=== PATIENT | female | born 1970 | race Caucasian/White ===

== ENCOUNTER 2016-02-19 16:57 | Emergency (ER) | payer BC, OTHER ==
[~2016-02-19] VITALS: Ht 154.9 cm; Wt 77.4 kg
[~2016-02-19 16:57] MED LIST: FLUO40CA8 PO
[2016-02-19 17:00] VITALS: TEMP 37; Ht 154.9 cm; Wt 77.4 kg
[2016-02-19] MEDS ORDERED: VENL150C PO (17:29)
[2016-02-19 17:44] LABS: URINE APPEARANCE CLEAR (CLEAR); URINE BILIRUBIN NEG (NEG); URINE COLOR YELLOW; URINE NITRITE NEG (NEG); URINE PH 6.5 (4.5-7.5); URINE SPECIFIC GRAVITY 1.008 (1.000-1.030); UROBILINOGEN NEG (NEG)
[2016-02-19 17:45] LABS: MANUAL MICROSCOPIC REQUIRED? NO; REVIEW REQ? NO
--- NOTE | 2016-02-19 18:11 | EMERGENCY ROOM VISIT NOTE ---
History Report prepared by Valeri: Addie Lucero Under the Supervision of: Dr. Enrique Zhou D.O. First contact with patient: 17:03 Chief Complaint: OTHER COMPLAINT Stated Complaint: PROLAPSED BLADDER History of Present Illness The patient is a 45 year old female who presents to the Emergency Room with complaints of a constant prolapsed bladder beginning today. The patient states that she has never experienced this before. She notes that she is not able to pee and it looks like "a baby's head is ". She is experiencing pressure and abdominal pain as she can't go pee. She denies any nausea, vomiting, fever, and chills. Source of History: patient Onset: today Position: other (bladder) Quality: other ("") Timing: constant Associated Symptoms: + abdominal pain, No chills, No fevers, No nausea, No vomiting Note: She is experiencing pressure. Review of Systems See HPI for pertinent positives & negatives. A total of 10 systems reviewed and were otherwise negative. Past Medical & Surgical Medical Problems: (1) Anxiety (2) Depression (3) Ovarian cyst (4) Restless leg syndrome Surgical Problems: (1) H/O: hysterectomy (2) Hx of cholecystectomy Family History Diabetes mellitus Social History Smoking Status: Current Every Day Smoker Alcohol Use: none Drug Use: none Marital Status: Housing Status: lives with family Occupation Status: employed Current/Historical Medications Scheduled Venlafaxine Hcl (Effexor Xr), 1 CAP PO DAILY Allergies Coded Allergies: No Known Allergies (Verified , 02/19/16) Physical Exam Vital Signs Date Time Temp Pulse Resp B/P Pulse Ox O2 Delivery O2 Flow Rate FiO2 02/19/16 18:24 81 17 120/71 97 02/19/16 17:00 37.0 95 17 154/92 97 Room Air Physical Exam GENERAL: Patient is awake, alert, and in no acute distress. Patient is very anxious and uncomfortable appearing. EYES: The conjunctivae are clear. The pupils are round and reactive. EARS, NOSE, MOUTH AND THROAT: The nose is without any evidence of any deformity. Mucous membranes are moist tongue is midline NECK: The neck is nontender and supple. RESPIRATORY: Normal respiratory effort is noted there is no evidence of wheezing rhonchi or rales CARDIOVASCULAR: Regular rate and rhythm noted there no murmurs rubs or gallops normal S1 normal S2 GASTROINTESTINAL: The abdomen is soft. Bowel sounds are present in all quadrants. Abdomen is nontender : External genitalia were normal in appearance. With Valsalva there was a small cystocele noted. MUSCULOSKELETAL/EXTREMITIES: There is no evidence of gross deformity full range of motion is noted in the hips and shoulders SKIN: There is no obvious evidence of any rash. There are no petechiae, pallor or cyanosis noted. NEUROLOGIC: Patient is awake alert and oriented x3 Medical Decision & Procedures Laboratory Results Test 02/19/16 17:20 Urine Color YELLOW Urine Appearance CLEAR (CLEAR) Urine pH 6.5 (4.5-7.5) Urine Specific Rainbow 1.008 (1.000-1.030) Urine Protein NEG (NEG) Urine Glucose (UA) NEG (NEG) Urine Ketones NEG (NEG) Urine Occult Blood 1+ (NEG) Urine Nitrite NEG (NEG) Urine Bilirubin NEG (NEG) Urine Urobilinogen NEG (NEG) Urine Leukocyte Esterase NEG (NEG) Urine WBC (Auto) 0 /hpf (0-5) Urine RBC (Auto) 5-10 /hpf (0-4) Urine Hyaline Casts (Auto) 0 /lpf (0-5) Urine Epithelial Cells (Auto) 5-10 /lpf (0-5) Urine Bacteria (Auto) NEG (NEG) Laboratory results per my review. ED Course 170: The patient was evaluated in room C10. A complete history and physical examination were performed. 172: I discussed the patient's case with Dr. Tavares. He will see her on Sunday. 174: Upon reevaluation, the patient is hemodynamically stable. I discussed the results and treatment plan with the patient. She verbalized agreement of the treatment plan. The patient was discharged home. Medical Decision Nursing notes reviewed. Differential diagnosis this patient could include prolapsed uterus cystocele rectocele vaginal mass infection abscess another differential diagnoses were considered. The patient is a 45-year-old female who presented to the emergency department for an evaluation of urinary retention and a bulge at her introitus. The patient 's physical exam appeared to be consistent with a cystocele. She is had some intermittent problems with this over the last few weeks. This appears to be so severe that patient is experiencing urinary retention. A Sorto catheter was placed and this resolved the patient's urinary retention. I discussed her case with the on-call [facility] OFFICE MACHINE SERVICER physician. They've agreed to see the patient in the office this upcoming week to discuss possible surgical management of this cystocele. I discussed this plan with the patient and she was agreeable. She was encouraged to continue all medications as prescribed and return to the emergency Department immediately if symptoms change worsen or if the need arises. Consults Time Called: 1724 Consulting Physician: Dr. Tavares Returned Call: 1728 I discussed the patient's case with Dr. Tavares. He will see her on Sunday. Impression Primary Impression: Cystocele Additional Impression: Urinary retention Scribe Attestation The scribe's documentation has been prepared under my direction and personally reviewed by me in its entirety. I confirm that the note above accurately reflects all work, treatment, procedures, and medical decision making performed by me. Departure Information Dispostion Home / Self-Care Referrals Ayesha Acosta M.D. (PCP) Forms HOME CARE DOCUMENTATION FORM, IMPORTANT VISIT INFORMATION, WORK / SCHOOL INSTRUCTIONS Patient Instructions My [facility] Additional Instructions Continue to use the Sorto catheter. Call your OFFICE MACHINE SERVICER physician on Sunday morning to schedule a follow-up appointment. Problem Qualifiers
[2016-02-19 18:24] VITALS: BP 120/71; PULSE 81; O2SAT 97
[2016-05-04] MEDS ORDERED: CHN/1 PO (11:08)
[2016-05-04] MEDS ORDERED: ATOR10TA88 PO (11:13)
== END 2016-02-19 18:25 | disposition home or self-care (01) ==
LOC: C.EDB 16:58 → C.EDC 18:25
DX: N81.10 Cystocele, unspecified (principal); R33.9 Retention of urine, unspecified; F32.9 Major depressive disorder, single episode, unspecified; F41.9 Anxiety disorder, unspecified; G25.81 Restless legs syndrome; F17.200 Nicotine dependence, unspecified, uncomplicated; N83.209 Unspecified ovarian cyst, unspecified side; Z83.3 Family history of diabetes mellitus

== ENCOUNTER 2016-04-16 23:49 | Emergency (ER) | payer BC, OTHER ==
[~2016-04-16] VITALS: Ht 157.5 cm; Wt 80.2 kg
[~2016-04-16 23:49] MED LIST changes: -FLUO40CA8 PO; +VENL150C PO
[2016-04-16 23:59] VITALS: TEMP 36.9; Ht 157.5 cm; Wt 80.2 kg
--- NOTE | 2016-04-17 00:15 | EMERGENCY ROOM VISIT NOTE ---
History Report prepared by Valeri: Raeann Castillo Under the Supervision of: Dr. Kate Calderon M.D. 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 The patient states that she has ongoing issues with urinary retention. Patient states she is scheduled to have surgery with Dr. Guajardo of urology for a sling and cystocele repair. The patient states sometimes she needs to use a pessary vaginally in order to urinate. The patient denies any recent fevers or burning with urination. A Sorto catheter had been placed prior to my evaluation. The patient's symptoms had improved significantly. The patient had similar issues last month and was discharged with a Sorto catheter for several days. Source of History: patient Onset: earlier tongiht SCRIPT SUPERVISOR Position: other (urinary) Timing: worsening Note: Patient denies any urinary urgency or frequency. Review of Systems See HPI for pertinent positives & negatives. A total of 6 systems reviewed and were otherwise negative. Past Medical & Surgical Medical Problems: (1) Anxiety (2) Depression (3) Ovarian cyst (4) Restless leg syndrome Surgical Problems: (1) H/O: hysterectomy (2) Hx of cholecystectomy Family History Diabetes mellitus Social History Smoking Status: Former Smoker Alcohol Use: none Drug Use: none Marital Status: Housing Status: lives with family Occupation Status: employed Current/Historical Medications Scheduled Venlafaxine Hcl (Effexor Xr), 1 CAP PO DAILY Allergies Coded Allergies: No Known Allergies (Verified , 04/17/16) Physical Exam Vital Signs Date Time Temp Pulse Resp B/P Pulse Ox O2 Delivery O2 Flow Rate FiO2 04/17/16 00:58 72 18 116/54 97 04/16/16 23:59 36.9 101 18 144/78 91 Room Air Physical Exam Vital signs reviewed. General: Well-appearing female, in no significant distress. HEENT: No scleral icterus, PERRLA, neck supple. Atraumatic. Cardiovascular: Regular rate and rhythm, no extra sounds. Pulmonary: Clear to auscultation bilaterally, normal work of breathing. Abdomen: Soft, nontender, nondistended, positive bowel sounds. : Sorto catheter in place Musculoskeletal: Atraumatic, no peripheral edema. Neurologic: Patient awake alert and oriented x 3, full strength in all 4 extremities. Skin: Warm, dry, no rash Medical Decision & Procedures Laboratory Results Test 04/17/16 00:45 Urine Color YELLOW Urine Appearance CLEAR (CLEAR) Urine pH 6.5 (4.5-7.5) Urine Specific Gideon 1.002 (1.000-1.030) Urine Protein NEG (NEG) Urine Glucose (UA) NEG (NEG) Urine Ketones NEG (NEG) Urine Occult Blood NEG (NEG) Urine Nitrite NEG (NEG) Urine Bilirubin NEG (NEG) Urine Urobilinogen NEG (NEG) Urine Leukocyte Esterase NEG (NEG) Laboratory results per my review. ED Course 0025: Past medical records reviewed. The patient was evaluated in room A2. A complete history and physical examination was performed. I discussed the treatment plan with the patient and she agreed to the treatment plan. The patient was discharged home. Medical Decision The patient is a 45 year old female who presents to the ED with complaints of urinary retention. Differentials include but are not limited to mechanical obstruction, UTI, medication effect, and dehydration. This patient was evaluated and appeared to be in no significant distress. Patient had significant improvement of her symptoms with the Sorto catheter placement. The patient will be discharged with the Sorto catheter this evening. She was instructed on catheter removal to be done in 24 hours. Patient will follow-up with her urologist later this week for reevaluation and to discuss the surgical date. Patient will return to the ER for worsening of symptoms or any medical concerns. Impression Primary Impression: Urinary retention Scribe Attestation The scribe's documentation has been prepared under my direction and personally reviewed by me in its entirety. I confirm that the note above accurately reflects all work, treatment, procedures, and medical decision making performed by me. Departure Information Dispostion Home / Self-Care Referrals Ayesha Acosta M.D. (PCP) Forms HOME CARE DOCUMENTATION FORM, IMPORTANT VISIT INFORMATION, WORK / SCHOOL INSTRUCTIONS Patient Instructions My [facility] Additional Instructions Diagnosis: Urinary retention Leave Sorto catheter in place for 24 hours. Remove approximately all of the fluid (10-15 ml) from the Sorto catheter balloon and remove the catheter tomorrow. Contact urology to let them know the urine the emergency department. Continue your conservative measures, such as pessary use, to encourage urine output. Return to the emergency department for worsening of symptoms or any medical concerns.
[2016-04-17 00:54] LABS: URINE APPEARANCE CLEAR (CLEAR); URINE BILIRUBIN NEG (NEG); URINE COLOR YELLOW; URINE NITRITE NEG (NEG); URINE PH 6.5 (4.5-7.5); URINE SPECIFIC GRAVITY 1.002 (1.000-1.030); UROBILINOGEN NEG (NEG); ZZURINE CULT IF INDIC CATH NO
[2016-04-17 00:58] VITALS: BP 116/54; PULSE 72; O2SAT 97
[2016-04-17 01:08] LABS: MANUAL MICROSCOPIC REQUIRED? NO; REVIEW REQ? NO
[2016-05-04] MEDS ORDERED: CHN/1 PO (11:08)
[2016-05-04] MEDS ORDERED: ATOR10TA88 PO (11:13)
== END 2016-04-17 00:55 | disposition home or self-care (01) ==
LOC: C.EDB 23:50 → C.EDA 04-17 00:55
DX: R33.9 Retention of urine, unspecified (principal); F41.9 Anxiety disorder, unspecified; N83.209 Unspecified ovarian cyst, unspecified side; F32.9 Major depressive disorder, single episode, unspecified; G25.81 Restless legs syndrome; Z87.891 Personal history of nicotine dependence; Z90.710 Acquired absence of both cervix and uterus; Z90.49 Acquired absence of other specified parts of digestive tract; Z79.899 Other long term (current) drug therapy; Z83.3 Family history of diabetes mellitus

== ENCOUNTER 2016-05-18 08:06 | Day surgery (SDC) | payer BC, OTHER ==
[2016-05-04 11:09] VITALS: BMI 33.0
--- NOTE | 2016-05-04 11:39 | PAT Medication Instructions ---
Service Date May 04, 2016. Current Home Medication List Atorvastatin (Lipitor), 10 MG PO QAM Varenicline (Chantix), 1 TAB PO BID Venlafaxine Hcl (Effexor Xr), 1 CAP PO QAM Medication Instructions For Your Scheduled Surgery - Hold the following medications the morning of surgery: Varenicline (Chantix), 1 TAB PO BID (can take later after surgery) - Take the following medications the morning of surgery with a sip of water: Venlafaxine Hcl (Effexor Xr), 1 CAP PO QAM Atorvastatin (Lipitor), 10 MG PO QAM - Take the following medications as scheduled the night before surgery: Varenicline (Chantix), 1 TAB PO BID If you have any questions please call us at [phone] or [phone] ( Rosemarie) or [phone]
[2016-05-04 12:13] LABS: BASO % 0.3 %; BASO ABS # 0.02 K/uL (0-0.2); COMPLETE YES; EOS % 2.1 %; HEMATOCRIT 40.8 % (37-47); IG% 0.2 %; LYMPH % 37.6 %; MEAN CELL VOLUME 90.7 fL (80-100); MEAN CORPUSCULAR HGB CONC 35.3 g/dl (32-36); MEAN PLATELET VOLUME 10.2 fL (7.4-10.4); NEUT % 52.8 %; PLATELET COUNT 229 K/uL (130-400); WHITE BLOOD COUNT 6.11 K/uL (4.8-10.8)
--- NOTE | 2016-05-04 12:20 | DIAGNOSTIC IMAGING REPORT ---
CHEST 2 VIEWS ROUTINE CLINICAL HISTORY: PAT preoperative evaluation COMPARISON STUDY: 04/23/2013 FINDINGS: The bones soft tissues and hemidiaphragms are normal. The cardiomediastinal silhouette is normal. The lungs are clear. The pulmonary vasculature is normal. IMPRESSION: Negative chest. Electronically signed by: Jaya Galeana M.D. 05/04/2016 12:19 PM Dictated Date/Time: 05/04/2016 12:19 PM
[2016-05-04 12:32] LABS: URINE APPEARANCE CLEAR (CLEAR); URINE BILIRUBIN NEG (NEG); URINE COLOR YELLOW; URINE NITRITE NEG (NEG); URINE PH 5.5 (4.5-7.5); URINE SPECIFIC GRAVITY 1.019 (1.000-1.030); UROBILINOGEN NEG (NEG)
[2016-05-04 12:40] LABS: MANUAL MICROSCOPIC REQUIRED? NO; REVIEW REQ? NO
[2016-05-04 12:44] LABS: BUN/CREATININE RATIO 22.8 (10-20); CREATININE 0.67 mg/dl (0.60-1.20); POTASSIUM 3.8 mmol/L (3.5-5.1)
[~2016-05-18] VITALS: Ht 154.9 cm; Wt 78.6 kg
[~2016-05-18 08:06] MED LIST changes: +ATOR10TA82 PO; +CHN/1 PO; +CIPROFLOXACIN / D5W 400 MG IV SCH; +DEXAMETHASONE SOD INJ 4 MG/ML VIAL ONE; +FENTANYL CITRATE INJ 50 MCG/1 ML 2 ML VIAL ONE; +LACTATED RINGER'S 1000ML IV SCH; +LIDOCAINE HCL 2% 2 ML VIAL (20MG/ML) ONE; +MIDAZOLAM HCL 1 MG/ML 2ML VIAL ONE; +ONDANSETRON INJ 2 MG/ML 2 ML VIAL ONE; +PROPOFOL IV EMULSION 10 MG/ML 20 ML VIAL IV ONE; +SCOPOLAMINE 1.5 MG TDSY TD SCH
[2016-05-18 08:26] VITALS: BP 117/62; PULSE 73; TEMP 36.7; O2SAT 97; Ht 154.9 cm; Wt 78.6 kg
[2016-05-18] MEDS ORDERED: PROMETHAZINE HCL INJ 6.25 MG in SODIUM CHLORIDE 0.9% 50ML 50 ML IV PRN ×2 (10:00→11:15)
[2016-05-18] MEDS ORDERED: ONDANSETRON INJ 2 MG/ML 2 ML VIAL IV PRN ×2 (10:00→11:15)
[2016-05-18] MEDS ORDERED: ATROPINE SULFATE 0.1 MG/ML 5ML SYR IV PRN ×2 (10:00→11:15)
[2016-05-18] MEDS ORDERED: EpHEDrine SULFATE INJ 50 MG/ML AMP IV PRN ×2 (10:00→11:15)
[2016-05-18] MEDS ORDERED: FENTANYL CITRATE INJ 50 MCG/1 ML 2 ML VIAL IV PRN ×2 (10:00→11:15)
--- NOTE | 2016-05-18 10:43 | History & Physical Bridge Note ---
H&P Re-Evaluation Bridge Note: I have examined the patient, reviewed the History & Physical and in the interval since the performance of the History & Physical I have noted the following changes of clinical significance: No changes noted
[2016-05-18] MEDS ORDERED: CLINDAMYCIN PHOS 2% VAG CR 40 GM TUBE ONE (10:47)
[2016-05-18] MEDS ORDERED: BUPIVACAINE/EPINEPHRINE 0.5% MPF 1:200,000 30 ML VIAL ONE (10:49)
[2016-05-18] MEDS ORDERED: DiphenhydrAMINE HCL 50 MG/ML VIAL ONE (11:16)
[2016-05-18] MEDS ORDERED: EpHEDrine SULFATE 50MG/5ML SYR ONE (11:35)
[2016-05-18] MEDS ORDERED: FENTANYL CITRATE INJ 50 MCG/1 ML 2 ML VIAL ONE (12:18)
[2016-05-18] MEDS ORDERED: PHENYLEPHRINE HCL INJ 10 MG/ML VIAL ONE (12:23)
--- NOTE | 2016-05-18 12:53 | [facility] Post Operative Brief Note ---
Immediate Operative Summary Operative Date May 18, 2016. Pre-Operative Diagnosis Cystocele and Occult Urinary Incontinence Post-Operative Diagnosis Cystocele and Occult Urinary Incontinence Procedure(s) Performed Midurethral Sling; Cystoscopy; Cystocele Repair with Shamika Plication Surgeon Dr. Selvin Guajardo Grade Checker Surgeon(s) Yaneth Eduardo-GET Estimated Blood Loss 40 cc Findings No bladder injury on cysto after each portion of case, tension free position of sling Specimens A:Cystocele sac Drains NA Anesthesia GALMA + local Complication(s) None Disposition Recovery Room / PACU
[2016-05-18] MEDS ORDERED: OXYC7.5T65 PO (12:56)
[2016-05-18] MEDS ORDERED: DOCU-94 PO (12:56)
[2016-05-18] MEDS ORDERED: SULF800T23 PO (12:56)
--- NOTE | 2016-05-18 12:58 | Discharge Instructions ---
Discharge Instructions Date of Service May 18, 2016. Admission Reason for Admission: Cystocele Discharge Discharge Diagnosis / Problem: Cystocele, stress urinary incontinence Discharge Goals Goal(s): Decrease discomfort, Improve function, Therapeutic intervention Activity Recommendations Activity Limitations: as noted below Lifting Limitations: no more than 10 pounds (x 6 weeks) Exercise/Sports Limitations: until after follow-up appointment (No heavy exercise x 6 weeks) May Resume Sexual Activity: after follow-up appointment (when cleared by Dr. Guajardo) Shower/Bathe: tomorrow (24-48hrs) Driving or Machine Use: resume 3 days after discharge . Instructions / Follow-Up Instructions / Follow-Up 1. You have been prescribed the antibiotic Bactrim DS. Finish all as directed. Discharge Diet Recommended Diet: Regular Diet Procedures Procedures Performed: Midurethral Sling; Cystoscopy; Cystocele Repair with Shamika Plication Pending Studies Studies pending at discharge: no Medical Emergencies . Who to Call and When: Medical Emergencies: If at any time you feel your situation is an emergency, please call 911 immediately. . Non-Emergent Contact Non-Emergency issues call your: Urologist Call Non-Emergent contact if: temperature is above 101.5, your pain is not controlled, your pain is worsening, your pain is unusual for you, your pain is concerning you, you have any medication questions . . "Provider Documentation" section prepared by Yaneth Eduardo. VTE Core Measure Inpt VTE Proph given/why not?: SCD's [place] Drug Monitoring Program Search Results: patient reviewed within database, no issues identified
[2016-05-18] MEDS ORDERED: OXYCODONE/ACETAMINOPHEN 7.5-325 TAB PO PRN (13:00)
--- NOTE | 2016-05-18 13:37 | OPERATIVE REPORT ---
DATE OF OPERATION: 05/18/2016 PREOPERATIVE DIAGNOSIS: Cystocele with occult stress urinary incontinence. POSTOPERATIVE DIAGNOSIS: Same. PROCEDURE: Cystocele repair with Shamika plication, mid urethral transobturator sling and intraoperative cystoscopy. SURGEON: Dr. Selvin Guajardo. REGISTERED REPRESENTATIVE: MIGUEL Torre. ANESTHESIA: General anesthesia with laryngeal mask plus local at incision sites. DRAINS LEFT IN PLACE: None. ESTIMATED BLOOD LOSS: 40 mL. IV FLUIDS: 1200 mL of crystalloid. SPECIMENS SENT TO PATHOLOGY: Cystocele. FINDINGS: No evidence of bladder injury on intraoperative cystoscopy after cystocele repair and sling placement, good tension free position of sling after completion and good reduction of cystocele. BRIEF HISTORY: Ms. Brumfield is a pleasant 45-year-old female who I have seen as an outpatient for history of prolapsing cystocele with local symptoms. She has undergone urodynamics in the office with a reduction of her cystocele which demonstrated clear occult stress urinary incontinence. The patient also has a history of urinary retention felt to be likely due to bladder neck angulation from her cystocele for which she has been taught CIC in the past. Please see H\T\P for further details. Seeing her combination of symptoms, cystocele repair with concurrent mid urethral sling placement is planned today. A [employer] Obtryx sling being used. Intravenous ciprofloxacin was provided for antibiotic coverage and DVT prophylaxis with SCDs. OPERATION AND FINDINGS: PROCEDURE: The patient was properly identified and brought to the operative suite. After identification and appropriate consent on the chart, general anesthesia with laryngeal mask was initiated and the patient was prepped and draped in standard fashion for this procedure. real time analyst-out procedure was completed. The patient was placed in Trendelenburg in high lithotomy and a weighted speculum was placed within the vaginal canal. A large cystocele up to the level of the apex of the vagina was appreciated. The vaginal cuff was at the superior most portion of the vaginal canal with a small apical relaxation associated. Local with epinephrine was used to hydrodissect the anterior vaginal wall and a midline incision was made with a 15 blade. Care was taken to avoid extending the incision too close to the bladder neck to allow for a separate incision to be made from the mid urethral sling. The cystocele sac was dissected off of the vaginal mucosa using blunt dissection with peanuts and Ray-Pamela sponges as well as sharp dissection where necessary where with Metzenbaum scissors. This dissection was completed up to the level of the lateral aspect of the vaginal wall. When the bladder was fully dissected off the cystocele sac lateral imbricating sutures from the sidewall were made to begin to close the defect. A 0 Vicryl on UR-6 and UR-5 needles were used. After the first layer was complete the bladder was noted to be in an excellent reduced location with minimal apical descent. The cystocele was able to be closed with 2 additional layers of interrupted mattress sutures. Excess vaginal mucosa was trimmed and the vaginal mucosa was closed using interrupted vertical mattress sutures. Again, excellent position was noted after completion. Excised mucosa was sent with the label cystocele. Intraoperative cystoscopy was performed at this point after removal of the Sorto catheter as the bladder had been decompressed throughout the case. Bladder was noted to have an excellently reduced cystocele and no evidence of bladder injury circumferentially with clear urine. Ureteral orifices were noted to be effluxing clear yellow urine. Cystocele was removed. Sorto catheter was replaced and the bladder was drained. Allis clamp was placed at the level of the meatus and a separate incision was made after induction of local anesthesia. The incision for the cystocele and the mid urethral sling were kept over a centimeter apart to avoid any possibility of migration from the sling proximally to the level of the cystocele dissection. Again, dissection was carried out to the side wall using blunt dissection and Metzenbaum scissors. Bilateral stab wounds were made lateral to the labia majora at the level of the clitoris and where the superior aspect of the obturator fossa was palpated. The trocars for the [employer] mid urethral transobturator sling system were passed on both sides onto the surgeon's finger. The vagina was inspected and noted to be free of any buttonholes or injury. The sling was hooked onto the obturators and brought through the transobturator fossa until it rested underneath the urethra. This easy passage of Linton scissors between the urethra and the sling was noted to avoid excess tension. Cystoscopy was repeated at this point. Again, the bladder and urethra were noted to be free of any injuries and ureteral efflux was noted to be clear. Bladder was drained and the Sorto was replaced. After the tension was ensured to be good at the level of the sling it was divided at the level of the stab incisions at the skin and the tensioning suture was removed. Vaginal tissue was closed using interrupted 0 Vicryl sutures over the sling material taking great care to avoid any entrapment of the sling. After the sling had been dropped beneath the level of the skin laterally Dermabond dressing was placed for the skin incisions. The bladder was drained and Sorto catheter was removed. Vaginal packing with clindamycin ointment was placed. Anesthesia was reversed and patient was transferred to recovery room in stable condition. FOLLOW-UP CARE: The patient will be discharged home with a prescription for ciprofloxacin, Percocet and Colace. She is to void x2. She will be discharged home after voiding as an inpatient. Postoperative appointment is confirmed. The patient is instructed to contact our service should she note any fevers, chills, nausea, vomiting or other significant difficulties in the postoperative period. I attest to the content of the Intraoperative Record and any orders documented therein. Any exceptions are noted below. GAVIN
[2016-05-18 14:05] VITALS: BP 110/62; PULSE 79; TEMP 36.4; O2SAT 92
--- NOTE | 2016-05-18 14:33 | Anesthesiology Progress Note ---
Anesthesia Post Op Note Date & Time May 18, 2016 at 14:32 Vital Signs Pain Intensity: 0 Vital Signs Past 12 Hours Date Time Temp Pulse Resp B/P Pulse Ox O2 Delivery O2 Flow Rate FiO2 05/18/16 14:00 36.7 86 16 108/71 97 Nasal Cannula 2 05/18/16 13:45 36.7 85 16 122/70 96 Nasal Cannula 2 05/18/16 13:35 85 16 119/71 95 Nasal Cannula 2 05/18/16 13:25 90 12 127/71 95 Room Air 05/18/16 13:15 89 12 119/75 96 Mask 10 05/18/16 13:05 85 12 119/72 97 Mask 10 05/18/16 12:56 36.3 82 12 112/64 97 Mask 10 05/18/16 08:26 36.7 73 16 117/62 97 Room Air Notes Mental Status: alert / awake / arousable, participated in evaluation Pt Amnestic to Procedure: Yes Nausea / Vomiting: adequately controlled Pain: adequately controlled Airway Patency, RR, SpO2: stable & adequate BP & HR: stable & adequate Hydration State: stable & adequate Anesthetic Complications: no major complications apparent
[2016-05-18 14:35] VITALS: BP 106/58; PULSE 87; O2SAT 92
[2016-05-18 15:05] VITALS: BP 98/58; PULSE 86; TEMP 36.9; O2SAT 94
[2016-05-18] MEDS ORDERED: CHECK SCOPOLAMINE PATCH PLACEMENT SCH (16:00)
== END 2016-05-18 16:00 | disposition home or self-care (01) ==
LOC: C.ACU 08:06
PROVIDERS: ATTEND Urology
DX: N39.3 Stress incontinence (female) (male) (principal); N81.11 Cystocele, midline; R33.9 Retention of urine, unspecified; N94.6 Dysmenorrhea, unspecified; F41.9 Anxiety disorder, unspecified; E78.5 Hyperlipidemia, unspecified; Z98.890 Other specified postprocedural states; Z83.3 Family history of diabetes mellitus; Z88.8 Allergy status to other drugs, medicaments and biological substances

== ENCOUNTER → 2016-05-23 | Outpatient (CLI) | payer BC ==
[~2016-05-23] MED LIST changes: -CIPROFLOXACIN / D5W 400 MG IV SCH; -DEXAMETHASONE SOD INJ 4 MG/ML VIAL ONE; +DOCU-94 PO; -FENTANYL CITRATE INJ 50 MCG/1 ML 2 ML VIAL ONE; -LACTATED RINGER'S 1000ML IV SCH; -LIDOCAINE HCL 2% 2 ML VIAL (20MG/ML) ONE; -MIDAZOLAM HCL 1 MG/ML 2ML VIAL ONE; -ONDANSETRON INJ 2 MG/ML 2 ML VIAL ONE; +OXYC7.5T65 PO; +PRMVC PV; -PROPOFOL IV EMULSION 10 MG/ML 20 ML VIAL IV ONE; -SCOPOLAMINE 1.5 MG TDSY TD SCH; +SULF800T23 PO
== END | disposition home or self-care (01) ==
LOC: C.LABSPEC 17:50
PROVIDERS: ATTEND Urology
DX: R33.9 Retention of urine, unspecified (principal)

== ENCOUNTER → 2016-05-30 | Outpatient (CLI) | payer BC ==
[~2016-05-30] MED LIST changes: -SULF800T23 PO
== END | disposition home or self-care (01) ==
LOC: C.LABSPEC 17:52
PROVIDERS: ATTEND Urology
DX: N81.11 Cystocele, midline (principal); N39.3 Stress incontinence (female) (male); R33.9 Retention of urine, unspecified; R31.9 Hematuria, unspecified

== ENCOUNTER 2016-11-29 22:59 | Emergency (ER) | payer BC ==
[~2016-11-29] VITALS: Ht 154.9 cm; Wt 81.4 kg
[~2016-11-29 22:59] MED LIST changes: -DOCU-94 PO; -OXYC7.5T65 PO; -PRMVC PV
[2016-11-29 23:07] VITALS: TEMP 36.9; O2SAT 97; Ht 154.9 cm; Wt 81.4 kg
[2016-11-29] MEDS ORDERED: PRMVC PV (23:34)
[2016-11-30 00:31] LABS: URINE APPEARANCE CLEAR (CLEAR); URINE BILIRUBIN NEG (NEG); URINE COLOR YELLOW; URINE NITRITE NEG (NEG); URINE PH 6.5 (4.5-7.5); URINE SPECIFIC GRAVITY 1.015 (1.000-1.030); UROBILINOGEN NEG (NEG); ZZURINE CULT IF INDIC CATH NO
[2016-11-30 00:34] LABS: MANUAL MICROSCOPIC REQUIRED? NO; REVIEW REQ? NO
[2016-11-30 01:32] VITALS: BP 147/85; PULSE 78
--- NOTE | 2016-11-30 01:35 | EMERGENCY ROOM VISIT NOTE ---
History First contact with patient: 23:10 Chief Complaint: UNABLE TO VOID Stated Complaint: CAN'T URINATE, PELVIC, RECTAL PAIN Nursing Triage Summary: unable to void s/p bladder surgery History of Present Illness The patient is a 46 year old female who presents to the Emergency Room with complaints of unable to urinate and increasing vaginal pressure and rectal discomfort for the past several hours. Patient has a history of rectocele and cystocele. She's had surgery before by Dr. Guajardo and has surgery scheduled in January for bladder lift as she has a large cystocele rectocele again. Patient states when it gets this large she cannot urinate and normally needs a Sorto catheter. Patient states she is requesting this now. Patient denies chest pain, dyspnea, abdominal pain, back pain, vaginal pain, trauma, fever, chills, vomiting, diarrhea. Review of Systems See HPI for pertinent positives & negatives. A total of 10 systems reviewed and were otherwise negative. Past Medical/Surgical History Medical Problems: (1) Anxiety (2) Depression (3) Ovarian cyst (4) Restless leg syndrome Surgical Problems: (1) H/O: hysterectomy (2) Hx of cholecystectomy Family History Diabetes mellitus Social History Smoking Status: Current Every Day Smoker Alcohol Use: none Drug Use: none Marital Status: Housing Status: lives with family Occupation Status: employed Current/Historical Medications Scheduled Atorvastatin (Lipitor), 10 MG PO QAM Estrogens, Conjugated (Premarin), 1 APPLN PV [id number] Venlafaxine Hcl (Effexor Xr), 150 MG PO QAM Physical Exam Vital Signs Date Time Temp Pulse Resp B/P (MAP) Pulse Ox O2 Delivery O2 Flow Rate FiO2 11/29/16 23:07 36.9 92 18 136/63 97 Room Air Physical Exam VITALS: Vitals are noted on the nurse's note and reviewed by myself. Vital signs stable. GENERAL: Pleasant female, in no acute distress, nondiaphoretic, well-developed well-nourished. SKIN: The skin was without rashes, erythema, edema, or bruising. There is no tenting of the skin. Capillary reflex less than 2 seconds. HEAD: Normocephalic atraumatic. EARS: External auditory canals clear, tympanic membranes pearly whatley without erythema or effusion bilaterally. EYES: Pupils equal round and reactive to light and accommodation. Conjunctivae without injection, sclerae without icterus. Extraocular movements intact. NOSE: Patent, turbinates without inflammation or discharge. MOUTH: Mucous membranes moist. Pharynx without erythema or exudate. Uvula midline. Airway patent. Tongue does not deviate. NECK: Supple without nuchal rigidity. No lymphadenopathy. No thyromegaly. Cervical spine is nontender. No JVD. HEART: Regular rate and rhythm without murmurs gallops or rubs. LUNGS: Clear to auscultation bilaterally without wheezes, rales or rhonchi. No dullness to percussion. No retractions or accessory muscle use. ABDOMEN: Positive bowel sounds x 4. Normal tympanic percussion. Soft, nontender, without masses or organomegaly. Blankenship sign negative. No guarding or rebound tenderness. No CVA tenderness exam: Cystocele present to the vaginal opening with no abrasions noted. Bag Checker present. Rectal exam: No fissures or tears or hemorrhoids. Bag Checker present. MUSCULOSKELETAL: No muscle atrophy, erythema, or edema noted. NEURO: Patient was alert and oriented to person place and time. Normal sensation to light and sharp touch. No focal neurological deficits. Medical Decision & Procedures Laboratory Results Test 11/30/16 00:15 Urine Color YELLOW Urine Appearance CLEAR (CLEAR) Urine pH 6.5 (4.5-7.5) Urine Specific [place] 1.015 (1.000-1.030) Urine Protein NEG (NEG) Urine Glucose (UA) NEG (NEG) Urine Ketones NEG (NEG) Urine Occult Blood TRACE (NEG) Urine Nitrite NEG (NEG) Urine Bilirubin NEG (NEG) Urine Urobilinogen NEG (NEG) Urine Leukocyte Esterase NEG (NEG) Urine WBC (Auto) 0 /hpf (0-5) Urine RBC (Auto) 5-10 /hpf (0-4) Urine Hyaline Casts (Auto) 0 /lpf (0-5) Urine Epithelial Cells (Auto) 5-10 /lpf (0-5) Urine Bacteria (Auto) NEG (NEG) ED Course Prior records/ancillary studies reviewed and summarized above. Nursing notes reviewed. Additional history obtained from family The patient's history was concerning for urinary retention Differential diagnosis: Etiologies such as urinary retention, infection, UTI, obstruction, as well as others were entertained. Physical examination: As above. ER treatment provided: Sorto catheter placed On reassessment the patient felt better. Diagnostics interpretation by me: Urine negative for infection Exam and history seem consistent with urinary retention secondary to large cystocele. Patient felt much better after having the catheter placed. She was advised to follow-up with her urologist in a few days or here in the ER sooner for fever, pain, problems with the Sorto, worsening signs or symptoms or as needed. By the evaluation outlined above emergent etiologies such as infection, renal colic, as well as others were deemed relatively unlikely. The pt informed about the findings as listed above. All questions were answered and pleased with the treatment. Return instructions were outlined and the patient was discharged in stable condition. Referral: The patient was referred back to her urologist for follow-up in 2 to 3 days for a recheck of the current condition. Case reviewed with my attending Medical Decision As above Medication Reconcilliation Current Medication List: was personally reviewed by me Blood Pressure Screening Patient's blood pressure: Normal blood pressure Impression Primary Impression: Urinary retention Departure Information Dispostion Home / Self-Care Condition GOOD Forms WORK / SCHOOL INSTRUCTIONS, HOME CARE DOCUMENTATION FORM, IMPORTANT VISIT INFORMATION Patient Instructions [facility], ED Catheter Care Sorto Additional Instructions Recommend take a stool softener and do not strain when you go the bathroom. Frequently empty out your Sorto catheter bag. Follow up with your urologist in 2-3 days, call for an appointment. Return to ER sooner for problems with Sorto catheter, fevers, pain, vomiting, worsening signs or symptoms or as needed.
== END 2016-11-30 01:30 | disposition home or self-care (01) ==
LOC: C.EDB 23:00
DX: R33.9 Retention of urine, unspecified (principal); N81.10 Cystocele, unspecified; R10.2 Pelvic and perineal pain; K62.89 Other specified diseases of anus and rectum; F41.9 Anxiety disorder, unspecified; F32.9 Major depressive disorder, single episode, unspecified; F17.210 Nicotine dependence, cigarettes, uncomplicated; Z79.899 Other long term (current) drug therapy

== ENCOUNTER 2017-01-18 05:49 | Observation (INO) | payer BC ==
[2017-01-01 11:41] VITALS: BMI 32.0
--- NOTE | 2017-01-01 12:12 | PAT Medication Instructions ---
Service Date Jan 01, 2017. Current Home Medication List Venlafaxine Hcl (Effexor Xr), 150 MG PO QAM Medication Instructions For Your Scheduled Surgery - Take the following medications the morning of surgery with a sip of water: Venlafaxine Hcl (Effexor Xr), 150 MG PO QAM OTHERWISE NOTHING TO EAT OR DRINK AFTER MIDNIGHT If you have any questions please call us at [phone] or [phone] or [phone]
[2017-01-01 12:38] LABS: BASO % 0.4 %; BASO ABS # 0.03 K/uL (0-0.2); COMPLETE YES; EOS % 2.1 %; HEMATOCRIT 44.3 % (37-47); IG% 0.2 %; LYMPH % 36.1 %; LYMPH ABS # 2.95 K/uL (1.2-3.4); MEAN CELL VOLUME 93.9 fL (80-100); MEAN CORPUSCULAR HEMOGLOBIN 32.2 pg (25-34); MEAN CORPUSCULAR HGB CONC 34.3 g/dl (32-36); MEAN PLATELET VOLUME 9.9 fL (7.4-10.4); MONO % 5.8 %; NEUT % 55.4 %; PLATELET COUNT 227 K/uL (130-400); RED BLOOD COUNT 4.72 M/uL (4.2-5.4); WHITE BLOOD COUNT 8.17 K/uL (4.8-10.8)
[2017-01-01 12:42] LABS: URINE APPEARANCE CLEAR (CLEAR); URINE BILIRUBIN NEG (NEG); URINE COLOR YELLOW; URINE NITRITE NEG (NEG); URINE SPECIFIC GRAVITY 1.012 (1.000-1.030); UROBILINOGEN NEG (NEG)
[2017-01-01 12:47] LABS: MANUAL MICROSCOPIC REQUIRED? NO; REVIEW REQ? NO
[2017-01-01 14:06] LABS: BUN/CREATININE RATIO 22.5 (10-20); CALCIUM 9.5 mg/dl (8.5-10.1); CREATININE 0.65 mg/dl (0.60-1.20); POTASSIUM 3.8 mmol/L (3.5-5.1)
[~2017-01-18] VITALS: Ht 157.5 cm; Wt 81.3 kg
[2017-01-18] VITALS (11 sets, daily range): BP systolic 86–121; BP diastolic 54–78; PULSE 82–98; TEMP 36.4–37.3; O2SAT 87–99; Ht 157.5 cm; Wt 81.3 kg
[~2017-01-18 05:49] MED LIST changes: -ATOR10TA82 PO; -CHN/1 PO; +SCOPOLAMINE SCH
[2017-01-18] MEDS ORDERED: LACTATED RINGER'S 1000ML 1,000 ML IV SCH (06:00)
[2017-01-18] MEDS ORDERED: CEFAZOLIN 2000MG IV PUSH 10 ML IV SCH (06:00)
[2017-01-18] MEDS ORDERED: SCOPOLAMINE 1.5 MG TDSY TD ONE ×2 (06:33→07:15)
[2017-01-18] MEDS ORDERED: BELLADONNA/OPIUM SUPP 60 MG SUPP PR ONE ×2 (06:58→12:03)
[2017-01-18] MEDS ORDERED: ATROPINE SULFATE 0.1 MG/ML 5ML SYR IV PRN (07:00)
[2017-01-18] MEDS ORDERED: EpHEDrine SULFATE INJ 50 MG/ML AMP IV PRN (07:00)
[2017-01-18] MEDS ORDERED: ONDANSETRON INJ 2 MG/ML 2 ML VIAL IV PRN ×2 (07:00→12:15)
[2017-01-18] MEDS ORDERED: FENTANYL CITRATE INJ 50 MCG/1 ML 2 ML VIAL IV PRN (07:00)
[2017-01-18] MEDS ORDERED: HYDROmorphone INJ 1 MG/ML SYR IV PRN ×2 (07:00→12:15)
[2017-01-18] MEDS ORDERED: PROMETHAZINE HCL INJ 12.5 MG in SODIUM CHLORIDE 0.9% 50ML 50 ML IV PRN (07:00)
[2017-01-18] MEDS ORDERED: CEFAZOLIN SOD 1 GM VIAL ONE (07:06)
[2017-01-18] MEDS ORDERED: BUPIVACAINE 0.5 % 5 MG/1 ML MPF 30ML VIAL ONE (07:06)
[2017-01-18] MEDS ORDERED: GLYCOPYRROLATE INJ 0.2 MG/ML VIAL ONE (07:08)
[2017-01-18] MEDS ORDERED: SUCCINYLCHOLINE CHLORIDE 20 MG/ML 10 ML VIAL IV ONE (07:08)
[2017-01-18] MEDS ORDERED: NEOSTIGMINE METHYLSULFATE 5 MG/5 ML SYR ONE (07:08)
[2017-01-18] MEDS ORDERED: DEXAMETHASONE SOD INJ 4 MG/ML VIAL ONE ×2 (07:08→08:25)
[2017-01-18] MEDS ORDERED: ONDANSETRON INJ 2 MG/ML 2 ML VIAL ONE ×2 (07:08→12:42)
[2017-01-18] MEDS ORDERED: LIDOCAINE HCL 2% 2 ML VIAL (20MG/ML) ONE (07:08)
[2017-01-18] MEDS ORDERED: PHENYLEPHRINE HCL INJ 10 MG/ML VIAL ONE (07:08)
[2017-01-18] MEDS ORDERED: PROPOFOL IV EMULSION 10 MG/ML 20 ML VIAL IV ONE (07:08)
[2017-01-18] MEDS ORDERED: EpHEDrine SULFATE INJ 50 MG/ML AMP ONE (07:08)
[2017-01-18] MEDS ORDERED: FENTANYL CITRATE INJ 50 MCG/1 ML 2 ML VIAL ONE (07:09)
[2017-01-18] MEDS ORDERED: MIDAZOLAM HCL 1 MG/ML 2ML VIAL ONE (07:09)
[2017-01-18] MEDS ORDERED: METOCLOPRAMIDE HCL INJ 5 MG/ML 2 ML VIAL ONE (08:25)
[2017-01-18] MEDS ORDERED: RANITIDINE HCL 25 MG/ML INJ ONE (08:25)
[2017-01-18] MEDS ORDERED: DiphenhydrAMINE HCL 50 MG/ML VIAL ONE (08:25)
[2017-01-18] MEDS ORDERED: EpHEDrine SULFATE 50MG/5ML SYR ONE (08:26)
[2017-01-18] MEDS ORDERED: HYDROmorphone INJ 2 MG/ML SYR/VIAL ONE (08:27)
[2017-01-18] MEDS ORDERED: PREMARIN VAG CRM 14 APPLN/30 GM TUBE ONE (08:50)
[2017-01-18] MEDS ORDERED: OXYBUTYNIN CHLORIDE 5 MG TAB PO PRN (12:15)
[2017-01-18] MEDS ORDERED: CEFAZOLIN IV 2,000 MG in DEXTROSE 5% 50ML 50 ML IV SCH (12:15)
[2017-01-18] MEDS ORDERED: ROCURONIUM BROMIDE 10 MG/ML 5 ML VIAL IV ONE (12:43)
[2017-01-18] MEDS ORDERED: IV FLUIDS COMPLETED PRN (13:00)
--- NOTE | 2017-01-18 13:01 | [facility] Operative Report ---
Operative Report Operative Date Jan 18, 2017. Pre-Operative Diagnosis Symptomatic Pelvic organ prolapse Post-Operative Diagnosis Same Procedure(s) Performed Robot Asst. Laparoscopic Sacrocolpopexy, Extensive Lysis of Adhesions, Cystoscopy Surgeon [place] Fire Observer Surgeon(s) MD Bennett and GET Eduardo Estimated Blood Loss 20cc Findings Significant pelvic organ prolapse with lateral anterior wall prolapse. Fluids See Anes Report Specimens None Drains 16 Fr Cooney Anesthesia General Complication(s) None Disposition Recovery Room / PACU Indications Significant P.O.P. which failed vaginal repair. Symptomatic and bothersome. Risks and benefits discussed at length. Description of Procedure Patient was consented and brought back to the operating room. Patient was placed under anesthesia in the supine position. The patient was then transferred to the dorsal lithotomy position and proper padding and straps were placed. Patient was prepped and draped in the regular sterile fashion. A time out was completed. With the time out completed. A cooney catheter was placed on the field and the bladder drained. The patient was placed into Trendelenburg position. A marking was made above the umbilicus and local anesthetic was injected. The skin was opened and the subcutaneous tissues were dissected to expose the fascia. A Varess Needle was then placed to insuflate the abdomen. The abdomen insuflated, a camera trocar was placed and the abdomen investigated with the laparoscopic camera. At this point, the skin was marked and three robotic trocars placed under direct visualization with local anesthetic. An additional assistant corporation counsel port was placed at the right lateral position. The robot was then positioned and docked. All arms were advanced under direct visualization. An EA sizer was then placed rectally with copious lubrication. The vaginal probe was then also placed. With the robot docked, the pelvic cavity was examined. The sigmoid colon was retracted. Pelvic adhesions were released. Extensive lysis of adhesions was necessary due to adhesions to the right ovary. The peritoneum over the vaginal cuff was inspected. An incision was made the the peritoneum was dissected away from the anterior and posterior vaginal cuff. The bladder and rectum were mobilized away. Great care was taken to identify the landmarks and limit cautery. With the peritoneum opened. The sacral promontory was identified and exposed. Care was taken to identify the vessels around the sacrum. The peritoneum was opened from the sacrum down the right gutter to the culdasac where it was connected to the incision over the vaginal cuff. The Y mesh was then trimmed after measuring and placed through the assistant corporation counsel port. The mesh was placed anterior and posterior. A 2-0 Gortex suture was then utilized to secure the mesh to the tissue with interrupted simple suturing. With the mesh secured to the vaginal cuff, the vaginal probe was removed and the vagina inspected. Good support was noted and no injuries. At this point the mesh was sutured to the sacrum with 3 interrupted sutures of ethabond. The area was inspected. Good support was noted. The peritoneum was then sutured to cover the mesh with a running vicryl. With the entire mesh covered the pelvis was inspected and irrigated. The vaginal open was inspected. Dr. Guajardo then completed a cystoscopy. A 30degree Cystoscope was placed into the bladder and the entire bladder was examined. The UO's were identified. Finally, a piece of surgicel was placed into the pelvis after inspecting the right ovary and the sigmoid colon. The pneumoperitoneum was released and the ports were removed. A vicryl 2-0 suture was used to close the midline fascia. 3 -0 vicryl was used to close the subcutaneous tissues of the midline and assistant corporation counsel port. Running monocryl was used to close the skin and skin glue placed. The area was cleaned and bandaged. A final vaginal inspection was completed and the cooney replaced. Vaginal packing was then placed as well as a B &O suppository. The patient was cleaned, aroused from anesthesia, and transferred to the pacu in stable condition having tolerated the procedure well with no complications. I was present and participated in all aspects of the procedure. Dr. Guajardo and JOB CHANGE CREW MEMBER Yaneth Eduardo both completed hr administrative assistant activities including instrument passing and assistance with suturing. They also completed vaginal and rectal manipulation. Dr. Guajardo completed the cystoscopy. Nurse Eduardo assisted with port placement and skin closure. The patient will be monitored in the PACU until transferred. I attest to the content of the Intraoperative Record and any orders documented therein. Any exceptions are noted below.
[2017-01-18 13:12] LABS: HEMATOCRIT 48.4 % (37-47); MEAN CELL VOLUME 94.9 fL (80-100); MEAN PLATELET VOLUME 10.3 fL (7.4-10.4); PLATELET COUNT 216 K/uL (130-400); WHITE BLOOD COUNT 16.36 K/uL (4.8-10.8)
[2017-01-18 13:20] LABS: MEAN CORPUSCULAR HGB CONC 33.7 g/dl (32-36)
[2017-01-18 13:32] LABS: BUN/CREATININE RATIO 16.8 (10-20); CALCIUM 8.6 mg/dl (8.5-10.1); CREATININE 0.95 mg/dl (0.60-1.20); POTASSIUM 4.2 mmol/L (3.5-5.1)
--- NOTE | 2017-01-18 13:37 | Anesthesiology Progress Note ---
Anesthesia Post Op Note Date & Time Jan 18, 2017 at 13:36 Vital Signs Pain Intensity: 0 Vital Signs Past 12 Hours Date Time Temp Pulse Resp B/P (MAP) Pulse Ox O2 Delivery O2 Flow Rate FiO2 01/18/17 13:30 94 13 122/75 95 Nasal Cannula 3 01/18/17 13:20 36.8 89 13 105/83 93 Nasal Cannula 3 01/18/17 13:10 85 13 124/76 94 Nasal Cannula 3 01/18/17 13:00 85 14 123/80 94 Nasal Cannula 3 01/18/17 12:50 85 14 114/79 97 Oxymask 10 01/18/17 12:40 98 15 119/86 97 Oxymask 10 01/18/17 12:33 36.4 103 20 115/80 96 Oxymask 10 01/18/17 06:10 37 98 20 109/68 (82) 99 Room Air Notes Mental Status: alert / awake / arousable, participated in evaluation Pt Amnestic to Procedure: Yes Nausea / Vomiting: adequately controlled Pain: adequately controlled Airway Patency, RR, SpO2: stable & adequate BP & HR: stable & adequate Hydration State: stable & adequate Anesthetic Complications: no major complications apparent
[2017-01-18 15:22] LABS: PROTHROMBIN TIME (PATIENT) 10.2 SECONDS (9.0-12.0)
[2017-01-18] MEDS: OXYCODONE/ACETAMINOPHEN 7.5-325 TAB PO PRN ×2 (15:36→19:38)
[2017-01-18] MEDS: CEFAZOLIN IV 2,000 MG in SYRINGE 0 ML IV SCH ×2 (15:37→23:37)
[2017-01-18] MEDS: ACETAMINOPHEN 500 MG TAB PO SCH ×2 (15:37→21:32)
[2017-01-18] MEDS: KETOROLAC TROMETHAMINE 30 MG/ML VIAL IV. PRN (17:38)
[2017-01-18] MEDS: LACTATED RINGER'S 1000ML 1,000 ML IV SCH (18:09)
[2017-01-18] MEDS ORDERED: NURSING VERBAL MED ORDER ONE (18:15)
[2017-01-18] MEDS: HEPARIN SOD 5000 UNIT/0.5 ML CARP SQ SCH (19:45)
[2017-01-18] MEDS: DOCUSATE SODIUM 100 MG CAP PO SCH (20:50)
[2017-01-19] VITALS (10 sets, daily range): BP systolic 93–103; BP diastolic 55–66; PULSE 69–82; TEMP 36.6–37.2; O2SAT 87–94
[2017-01-19] MEDS: LACTATED RINGER'S 1000ML 1,000 ML IV SCH ×3 (01:54→19:59)
[2017-01-19] MEDS: ACETAMINOPHEN 500 MG TAB PO SCH ×4 (04:17→21:39)
[2017-01-19] MEDS: HEPARIN SOD 5000 UNIT/0.5 ML CARP SQ SCH ×2 (06:25→20:03)
[2017-01-19 07:11] LABS: BASO % 0.1 %; BASO ABS # 0.01 K/uL (0-0.2); COMPLETE YES; EOS % 0.2 %; HEMATOCRIT 36.9 % (37-47); IG% 0.1 %; LYMPH % 20.3 %; LYMPH ABS # 2.19 K/uL (1.2-3.4); MEAN CELL VOLUME 95.3 fL (80-100); MEAN CORPUSCULAR HGB CONC 33.6 g/dl (32-36); MEAN PLATELET VOLUME 10.1 fL (7.4-10.4); MONO % 8.5 %; NEUT % 70.8 %; PLATELET COUNT 199 K/uL (130-400); RED BLOOD COUNT 3.87 M/uL (4.2-5.4); WHITE BLOOD COUNT 10.77 K/uL (4.8-10.8)
[2017-01-19 07:18] LABS: BUN/CREATININE RATIO 14.3 (10-20); CALCIUM 8.4 mg/dl (8.5-10.1); CREATININE 0.57 mg/dl (0.60-1.20); POTASSIUM 3.7 mmol/L (3.5-5.1)
[2017-01-19] MEDS: KETOROLAC TROMETHAMINE 30 MG/ML VIAL IV. PRN ×3 (08:15→23:18)
--- NOTE | 2017-01-19 08:21 | Progress Note ---
Subjective Date of Service: Jan 19, 2017. (Yaneth Eduardo CRNP) Date of Service: 01/19/17 (Jignesh Dang D.OEllie) Subjective Pt evaluation today including: conversation w/ patient, chart review, lab review Voiding: cooney catheter in place (patent, draining clear, yellow urine) 46 yo female s/p robotic assisted sacrocolpopexy. Pt c/o abdominal pain 7/10 this morning. She also c/o pain in her tail bone. Denies n/v. Tolerating clear liquids. States she is hungry. Denies flatus or BM. She has not yet been out of bed. Labs stable. I&Os acceptable. (Yaneth Eduardo CRNP) Pt evaluation today including: conversation w/ patient, conversation w/ family Pain: Tolerating. Improved with meds PO Intake: Good Cooney removed. Moderate pain on tailbone. Not ambulating. Not IS. Tolerating pain better with meds. Tolerating diet. No flatus (Jignesh Dang, [place].O.) Problem List Medical Problems: (1) Cystocele Status: Acute (2) Urinary retention Status: Acute (3) Urinary retention Status: Acute (4) Urinary retention Status: Acute (Yaneth Eduardo CRNP) Pelvic Organ Prolapse (Jignesh Dang, D.O.) Review of Systems Constitutional: No fever, No chills Respiratory: No shortness of breath Cardiac: No chest pain Abdomen: + see HPI, + pain, No nausea, No vomiting Musculoskeletal: + see HPI Female : No dysuria, No hematuria Heme: No abnormal bleeding/bruising (Yaneth Eduardo CRNP) All Other Systems: Reviewed and Negative (Jignesh Dang, D.O.) Objective Vital Signs Date Time Temp Pulse Resp B/P (MAP) Pulse Ox O2 Delivery O2 Flow Rate FiO2 01/19/17 07:52 37.1 72 18 98/58 (71) 92 Room Air 01/19/17 03:57 37.1 74 16 96/55 (69) 94 Nasal Cannula 2.0 01/18/17 23:50 Nasal Cannula 2.0 01/18/17 23:30 95/56 (69) 92 Nasal Cannula 2.0 01/18/17 23:25 37.0 82 15 92/57 (69) 87 Room Air 01/18/17 20:20 90 121/76 (91) 01/18/17 20:16 36.4 90 18 96/60 (72) 92 Room Air 01/18/17 20:15 86/54 (65) 01/18/17 17:15 37.1 86 16 101/65 (77) 95 Nasal Cannula 2.0 01/18/17 16:20 36.9 93 18 100/62 (75) 96 Nasal Cannula 2.0 01/18/17 15:30 Nasal Cannula 01/18/17 15:15 37.2 86 16 103/63 (76) 95 Nasal Cannula 2.0 01/18/17 14:45 37.3 95 17 112/72 (85) 95 Nasal Cannula 2.0 01/18/17 14:10 94 Nasal Cannula 3.0 01/18/17 14:10 94 Nasal Cannula 3.0 01/18/17 14:10 37.3 88 16 116/78 (91) 94 Nasal Cannula 3.0 01/18/17 14:00 92 14 122/77 94 Nasal Cannula 3 01/18/17 13:45 88 13 117/76 95 Nasal Cannula 3 01/18/17 13:30 94 13 122/75 95 Nasal Cannula 3 01/18/17 13:20 36.8 89 13 105/83 93 Nasal Cannula 3 01/18/17 13:10 85 13 124/76 94 Nasal Cannula 3 01/18/17 13:00 85 14 123/80 94 Nasal Cannula 3 01/18/17 12:50 85 14 114/79 97 Oxymask 10 01/18/17 12:40 98 15 119/86 97 Oxymask 10 01/18/17 12:33 36.4 103 20 115/80 96 Oxymask 10 (Yaneth Eduardo, CORPORATE PLANNER) Physical Exam General Appearance: no apparent distress Eyes: normal inspection ENT: hearing grossly normal Neck: no JVD Respiratory/Chest: no respiratory distress, no accessory muscle use Cardiovascular: no JVD Abdomen: + pertinent finding (abdominal incisions c/d/i) Extremities: normal inspection Neurologic/Psychiatric: alert, normal mood/affect, oriented x 3 Skin: normal color (Yaneth Eduardo, CORPORATE PLANNER) General Appearance: WD/WN, no apparent distress ENT: normal ENT inspection Neck: supple, no JVD Respiratory/Chest: no respiratory distress, no accessory muscle use Cardiovascular: regular rate, rhythm Abdomen: + distended Extremities: normal range of motion, normal inspection Neurologic/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, no motor/sensory deficits, alert, normal mood/affect, oriented x 3 Skin: normal color, warm/dry Lymphatic: no adenopathy (Jignesh Dang D.O.) Laboratory Results Last 24 Hours Test 01/18/17 12:57 01/18/17 14:58 01/19/17 06:05 White Blood Count 16.36 K/uL 10.77 K/uL Red Blood Count 5.10 M/uL 3.87 M/uL Hemoglobin 16.3 g/dL 12.4 g/dL Hematocrit 48.4 % 36.9 % Mean Corpuscular Volume 94.9 fL 95.3 fL Mean Corpuscular Hemoglobin 32.0 pg 32.0 pg Mean Corpuscular Hemoglobin Concent 33.7 g/dl 33.6 g/dl RDW Standard Deviation 46.6 fL 47.9 fL RDW Coefficient of Variation 13.3 % 13.7 % Platelet Count 216 K/uL 199 K/uL Mean Platelet Volume 10.3 fL 10.1 fL Sodium Level 138 mmol/L 140 mmol/L Potassium Level 4.2 mmol/L 3.7 mmol/L Chloride Level 107 mmol/L 107 mmol/L Carbon Dioxide Level 24 mmol/L 28 mmol/L Anion Gap 7.0 mmol/L 5.0 mmol/L Blood Urea Nitrogen 16 mg/dl 8 mg/dl Creatinine 0.95 mg/dl 0.57 mg/dl Est Creatinine Clear Calc Drug Dose 74.7 ml/min 124.4 ml/min Estimated GFR () 84.4 130.7 Estimated GFR (Non- 72.8 112.7 BUN/Creatinine Ratio 16.8 14.3 Random Glucose 142 mg/dl 78 mg/dl Calcium Level 8.6 mg/dl 8.4 mg/dl Chemistry Specimen Hemolysis Prothrombin Time 10.2 SECONDS Prothromb Time International Ratio 1.0 Neutrophils (%) (Auto) 70.8 % Lymphocytes (%) (Auto) 20.3 % Monocytes (%) (Auto) 8.5 % Eosinophils (%) (Auto) 0.2 % Basophils (%) (Auto) 0.1 % Neutrophils # (Auto) 7.62 K/uL Lymphocytes # (Auto) 2.19 K/uL Monocytes # (Auto) 0.92 K/uL Eosinophils # (Auto) 0.02 K/uL Basophils # (Auto) 0.01 K/uL Immature Granulocyte % (Auto) 0.1 % Immature Granulocyte # (Auto) 0.01 K/uL (Yaneth Eduardo CRNP) Assessment and Plan POD #1 s/p robotic assisted sacrocolpopexy Pt slightly hypotensive at 98/58. Will continue IVF for now. Pain 08/14. Will provide Toradol as ordered for pain given her hypotension. Discussed with RN. Will d/c cooney catheter and vaginal packing this morning. Will advance to a mechanical soft diet for breakfast. Encourage use of IS. Encourage ambulation to hallway. D/c home pending improvement in pain, tolerating PO, and ambulation without difficulty. Discharge planning: home (Yaneth Eduardo CRNP) 1. POD 1 s/p Robotic Sacrocolpopexy Plan to increase activity and encouraged deep breathing with IS. Walk daily. Cooney out. Packing removed by order. Will discharge after voiding. Increase activity. Okay to drink fluids. Shower okay. Wash wounds with warm soapy water. Call if any issues. (Jignesh Dang, D.O.)
[2017-01-19] MEDS ORDERED: OXYC7.5T62 PO (08:25)
[2017-01-19] MEDS ORDERED: CLC100 PO (08:25)
[2017-01-19] MEDS ORDERED: SULF800T23 PO (08:31)
--- NOTE | 2017-01-19 08:31 | Discharge Instructions ---
Discharge Instructions Date of Service Jan 19, 2017. Admission Reason for Admission: Pelvic Organ Prolapse Discharge Discharge Diagnosis / Problem: Pelvic Organ Prolapse Discharge Goals Goal(s): Decrease discomfort, Improve function, Increase independence, Improve disease control, Therapeutic intervention Activity Recommendations Activity Limitations: as noted below Lifting Limitations: no more than 10 pounds (x 6 weeks) Exercise/Sports Limitations: until after follow-up appointment (Light activity x 6 weeks. No heavy exercise or lifting. ) May Resume Sexual Activity: after follow-up appointment (No sexual activity x 6 weeks or until cleared by Dr. Dang. ) Shower/Bathe: tomorrow Driving or Machine Use: Resume in [address] while taking narcotics. . Instructions / Follow-Up Instructions / Follow-Up 1. Follow-up with Dr. Dang as scheduled. Please call our office at if you need to reschedule for any reason. 2. You have been prescribed the antibiotic Bactrim DS. Finish all as directed. Current Hospital Diet Patient's current hospital diet: Regular Diet Discharge Diet Recommended Diet: Regular Diet Procedures Procedures Performed: Robot Asst. Laparoscopic Sacrocolpopexy, Extensive Lysis of Adhesions, Cystoscopy Pending Studies Studies pending at discharge: no Medical Emergencies . Who to Call and When: Medical Emergencies: If at any time you feel your situation is an emergency, please call 911 immediately. . Non-Emergent Contact Non-Emergency issues call your: Urologist Call Non-Emergent contact if: temperature is above 101.5, your pain is not controlled, your pain is worsening, your pain is unusual for you, your pain is concerning you, wound has increased drainage, wound has increased redness, wound has increased pain, you have any medication questions . . "Provider Documentation" section prepared by Yaneth Eduardo. . VTE Core Measure Inpt VTE Proph given/why not?: Unfractionated heparin SQ, SCD's [place] Drug Monitoring Program Search Results: patient reviewed within database, no issues identified
[2017-01-19] MEDS: CEFAZOLIN IV 2,000 MG in SYRINGE 0 ML IV SCH (09:01)
[2017-01-19] MEDS: VENLAFAXINE HCL XR 150 MG CAPXR PO SCH (09:01)
[2017-01-19] MEDS: DOCUSATE SODIUM 100 MG CAP PO SCH ×2 (09:01→20:07)
[2017-01-19] MEDS: OXYCODONE/ACETAMINOPHEN 7.5-325 TAB PO PRN ×2 (11:15→20:28)
--- NOTE | 2017-01-19 14:41 | Progress Note ---
Progress Note Date of Service Jan 19, 2017. Progress Note pt struggled with her attempt at ambulation - back in bed now - does not feel she is ready for d/c home - incisions all look appropriate - focus of discomfort is more internal Cont pain control overnight - attempt to ambulate again - check on her again tomorrow
[2017-01-20] MEDS: OXYCODONE/ACETAMINOPHEN 7.5-325 TAB PO PRN ×2 (01:20→11:03)
[2017-01-20] MEDS: LACTATED RINGER'S 1000ML 1,000 ML IV SCH (03:50)
[2017-01-20] MEDS: ACETAMINOPHEN 500 MG TAB PO SCH (03:51)
[2017-01-20] MEDS: HEPARIN SOD 5000 UNIT/0.5 ML CARP SQ SCH (06:16)
[2017-01-20 07:15] VITALS: BP 93/58; PULSE 72; TEMP 36.8; O2SAT 92
[2017-01-20] MEDS: KETOROLAC TROMETHAMINE 30 MG/ML VIAL IV. PRN (07:33)
[2017-01-20] MEDS: VENLAFAXINE HCL XR 150 MG CAPXR PO SCH (07:33)
[2017-01-20] MEDS: DOCUSATE SODIUM 100 MG CAP PO SCH (07:33)
[2017-01-20 08:25] LABS: BASO % 0.3 %; BASO ABS # 0.02 K/uL (0-0.2); COMPLETE YES; EOS % 4.4 %; IG% 0.1 %; LYMPH % 33.3 %; LYMPH ABS # 2.66 K/uL (1.2-3.4); MEAN CELL VOLUME 95.6 fL (80-100); MEAN CORPUSCULAR HEMOGLOBIN 32.2 pg (25-34); MEAN CORPUSCULAR HGB CONC 33.7 g/dl (32-36); MEAN PLATELET VOLUME 9.9 fL (7.4-10.4); NEUT % 53.9 %; PLATELET COUNT 165 K/uL (130-400); RED BLOOD COUNT 3.66 M/uL (4.2-5.4); WHITE BLOOD COUNT 7.99 K/uL (4.8-10.8)
[2017-01-20 08:57] LABS: BUN/CREATININE RATIO 16.3 (10-20); CALCIUM 8.1 mg/dl (8.5-10.1); CREATININE 0.58 mg/dl (0.60-1.20); POTASSIUM 3.8 mmol/L (3.5-5.1)
--- NOTE | 2017-01-20 10:16 | Progress Note ---
Progress Note Date of Service Jan 20, 2017. Progress Note S: Feeling much better - modest incisional pain only - ambulated overnight and again this AM - voiding well - tolerating a diet - wants to go home O: Vital Signs Past 12 Hours Date Time Temp Pulse Resp B/P (MAP) Pulse Ox O2 Delivery O2 Flow Rate FiO2 01/20/17 07:33 Room Air 01/20/17 07:15 36.8 72 16 93/58 (70) 92 Room Air 01/19/17 23:15 Nasal Cannula 01/19/17 23:12 90 Nasal Cannula 2.0 01/19/17 23:08 37.2 82 16 98/61 (73) 87 Room Air 01/20/17 08:08 Red Blood Count 3.66, Mean Corpuscular Volume 95.6, Mean Corpuscular Hemoglobin 32.2, Mean Corpuscular Hemoglobin Concent 33.7, Mean Platelet Volume 9.9, Neutrophils (%) (Auto) 53.9, Lymphocytes (%) (Auto) 33.3, Monocytes (%) (Auto) 8.0, Eosinophils (%) (Auto) 4.4, Basophils (%) (Auto) 0.3, Neutrophils # (Auto) 4.31, Lymphocytes # (Auto) 2.66, Monocytes # (Auto) 0.64, Eosinophils # (Auto) 0.35, Basophils # (Auto) 0.02 01/20/17 08:08 Test 01/20/17 08:08 White Blood Count 7.99 K/uL (4.8-10.8) Red Blood Count 3.66 M/uL (4.2-5.4) Hemoglobin 11.8 g/dL (12.0-16.0) Hematocrit 35.0 % (37-47) Mean Corpuscular Volume 95.6 fL (80-100) Mean Corpuscular Hemoglobin 32.2 pg (25-34) Mean Corpuscular Hemoglobin Concent 33.7 g/dl (32-36) Platelet Count 165 K/uL (130-400) Mean Platelet Volume 9.9 fL (7.4-10.4) Neutrophils (%) (Auto) 53.9 % Lymphocytes (%) (Auto) 33.3 % Monocytes (%) (Auto) 8.0 % Eosinophils (%) (Auto) 4.4 % Basophils (%) (Auto) 0.3 % Neutrophils # (Auto) 4.31 K/uL (1.4-6.5) Lymphocytes # (Auto) 2.66 K/uL (1.2-3.4) Monocytes # (Auto) 0.64 K/uL (0.11-0.59) Eosinophils # (Auto) 0.35 K/uL (0-0.5) Basophils # (Auto) 0.02 K/uL (0-0.2) RDW Standard Deviation 48.6 fL (36.4-46.3) RDW Coefficient of Variation 13.8 % (11.5-14.5) Immature Granulocyte % (Auto) 0.1 % Immature Granulocyte # (Auto) 0.01 K/uL (0.00-0.02) Anion Gap 6.0 mmol/L (3-11) Est Creatinine Clear Calc Drug Dose 122.3 ml/min Estimated GFR () 129.9 Estimated GFR (Non- 112.1 BUN/Creatinine Ratio 16.3 (10-20) Calcium Level 8.1 mg/dl (8.5-10.1) NAD AAOx3 no resp distress RRR abd soft - incisions w.o sxs of infection/hernia - no edema A/P: POD #2 s/p robo sacrocolpopexy - d/c home this AM
[2017-01-20 11:14] VITALS: BP 93/58; PULSE 72; TEMP 36.8; O2SAT 92
--- NOTE | 2017-01-24 13:44 | Discharge Summary ---
Discharge Summary Date of Service Jan 24, 2017. Admission Date/Reason Jan 18, 2017 at 12:19 Pelvic Organ Prolapse. Discharge Date/Disposition Jan 20, 2017 Home Diagnosis Principal Diagnosis: Pelvic Organ Prolapse Secondary Diagnoses/Problems: None Procedure(s) Performed Robotic Sacrocolpopexy Consultations None Medication Reconciliation See List Admission Physical Exam As per Admitting History & Physical. Hospital Course Patient was admitted and underwent robotic laparoscopic procedure. Postoperatively she did well. POD 1 she was ambulating and tolerating clears. Increased acticity. Pain medications were adjusted. Sorto and packing were removed. Patient was followed closely. She continued to improve and was ready for discharge. She was discharged to the care of her family with instructions as were listed in discharge paperwork. Discharge Instructions Please refer to the electronic Patient Visit Report (Discharge Instructions) for additional information.
== END 2017-01-20 12:00 | disposition home or self-care (01) ==
LOC: C.ACU 05:49 → C.MSN 12:19 → ENRESERV 13:38
PROVIDERS: ADMIT Urology; ATTEND Urology
DX: N81.11 Cystocele, midline (principal); F41.9 Anxiety disorder, unspecified; E78.5 Hyperlipidemia, unspecified; N39.3 Stress incontinence (female) (male); F17.200 Nicotine dependence, unspecified, uncomplicated; Z79.899 Other long term (current) drug therapy
CPT/HCPCS: 57425; S2900

== ENCOUNTER → 2017-01-24 | Outpatient (CLI) | payer BC ==
[~2017-01-24] MED LIST changes: +CLC100 PO; +OXYC7.5T62 PO; -SCOPOLAMINE SCH; +SULF800T23 PO
--- NOTE | 2017-01-24 12:18 | DIAGNOSTIC IMAGING REPORT ---
ABDOMEN 2VIEW W/PA CHEST RTN CLINICAL HISTORY: K59.00 [id number] COMPARISON STUDY: Chest x-ray dated 05/04/2016 FINDINGS: The erect chest reveals no free intraperitoneal air. There is no focal pulmonary consolidation. There is minor right basilar atelectasis. Erect and supine views the abdomen reveal mild to moderate stool within the right colon. There are surgical clips within the right upper quadrant consistent with a prior cholecystectomy. There are no transition zones to indicate bowel obstruction. No significant air-fluid levels are visualized. IMPRESSION: 1. No evidence of bowel obstruction. No evidence of free air 2. Mild to moderate stool within the right colon Electronically signed by: Jesse Muse M.D. 01/24/2017 12:17 PM Dictated Date/Time: 01/24/2017 12:16 PM
== END | disposition home or self-care (01) ==
LOC: C.RAD 11:37
PROVIDERS: ATTEND Urology
DX: K59.00 Constipation, unspecified (principal)

== ENCOUNTER 2017-05-02 17:02 | Emergency (ER) | payer BC ==
[~2017-05-02] VITALS: Ht 154.9 cm; Wt 78.0 kg
[~2017-05-02 17:02] MED LIST changes: -SULF800T23 PO
[2017-05-02 17:19] VITALS: BP 110/75; PULSE 98; TEMP 37.1; Ht 154.9 cm; Wt 78.0 kg
[2017-05-02 17:21] VITALS: O2SAT 96
[2017-05-02] MEDS ORDERED: SODIUM CHLORIDE 0.9% 500ML 500 ML IV SCH (18:45)
[2017-05-02] MEDS ORDERED: KETOROLAC TROMETHAMINE 30 MG/ML VIAL ONE (18:51)
[2017-05-02] MEDS ORDERED: GABAPENTIN 300 MG CAP PO STA (19:05)
[2017-05-02 19:13] LABS: HEMATOCRIT 45.9 % (37-47); HEMOGLOBIN 16.6 g/dL (12.0-16.0); MEAN CELL VOLUME 92.4 fL (80-100); MEAN CORPUSCULAR HEMOGLOBIN 33.4 pg (25-34); MEAN CORPUSCULAR HGB CONC 36.2 g/dl (32-36); MEAN PLATELET VOLUME 10.4 fL (7.4-10.4); PLATELET COUNT 243 K/uL (130-400); RED CELL DISTRIBUTION WIDTH CV 12.8 % (11.5-14.5); RED CELL DISTRIBUTION WIDTH SD 43.1 fL (36.4-46.3); WHITE BLOOD COUNT 9.55 K/uL (4.8-10.8)
[2017-05-02 19:33] LABS: BLOOD UREA NITROGEN 14 mg/dl (7-18); CALCIUM 9.5 mg/dl (8.5-10.1); CARBON DIOXIDE 25 mmol/L (21-32); GLUCOSE 77 mg/dl (70-99); POTASSIUM 4.2 mmol/L (3.5-5.1); SODIUM 135 mmol/L (136-145)
[2017-05-02] MEDS ORDERED: NORCO 5/325MG HOME PACK ONE (21:42)
[2017-05-03] MEDS ORDERED: OPTIRAY 320 IV PRN (07:30)
--- NOTE | 2017-05-03 08:28 | DIAGNOSTIC IMAGING REPORT ---
CT SCAN OF THE NECK WITH IV CONTRAST CLINICAL HISTORY: Sore throat. COMPARISON STUDY: No priors. TECHNIQUE: Following the IV administration of approximately 100 cc of Optiray 320, CT scan of the soft tissues of the neck was performed from the skull base to the upper chest. Images are reviewed in the axial, sagittal, and coronal planes. IV contrast was administered without complication. A dose lowering technique was utilized adhering to the principles of ALARA. FINDINGS: Pharynx: The nasopharynx, oropharynx, and laryngeal pharynx are normal in appearance. The pharyngeal airway is widely patent. There is no evidence of mass lesion. The vocal cords are symmetric. The parapharyngeal fat is well maintained. The prevertebral/retropharyngeal soft tissues are within normal limits. No fluid collection is identified. Lymphadenopathy: Shotty cervical lymph nodes are not pathologically enlarged by size criteria Thyroid: Normal in size and attenuation. Salivary glands: The parotid and submandibular glands are within normal limits. Brain parenchyma: The visualized brain parenchyma at the skull base is normal in appearance. Vascular structures: The carotid arteries and jugular veins are widely patent bilaterally. Skeletal structures: Imaged portions of the calvarium at the skull base are within normal limits. The cervical spine appears intact. Sinuses and mastoids: Trace mucosal thickening is seen in left maxillary antrum, the sphenoid sinuses, and the ethmoid sinuses. There is a large right mastoid effusion. The left mastoid air cells are well pneumatized. Fluid is noted in the right middle ear. Lung apices: Visualized apical lung parenchyma is clear. IMPRESSION: 1. No acute abnormality is identified. No inflammatory changes or abscess is seen. 2. Shotty cervical nodes are not pathologically enlarged by size criteria and are likely on a reactive basis. 3. There is a right mastoid effusion, as well as fluid in the right middle ear. Electronically signed by: Issa Harry M.D. 05/03/2017 8:27 AM Dictated Date/Time: 05/03/2017 8:04 AM
--- NOTE | 2017-05-03 13:56 | EMERGENCY ROOM VISIT NOTE ---
ED Visit Note First contact with patient: 22:05 Chief Complaint: Sore throat, headache and neck pain. History of Present Illness: Ms. Brumfield is a 46-year-old white female who ambulates into the ED accompanied by her complaining of throat pain, headache and left-sided neck pain. Patient reports just over a week ago she was seen at her PCPs office and diagnosed with shingles in her mouth. She was placed on acyclovir. Throughout the week the pain has gradually increased in intensity. She has followed up twice with her primary care provider and has been placed on steroids and viscous lidocaine. Her last visit was earlier today and reports a third strep screen was performed and was negative and she was tested for mono and her testing was negative. Currently patient is complaining of a burning-like pain in her mouth, and the posterior pharyngeal area, over the left lateral aspect of the head and face and left lateral and anterior aspect of the neck. She rates her discomfort 9/ 10. Her pain is nonradiating. Her pain worsens with swallowing and palpation. She has not identified any alleviating factors related to the pain. In addition to the medications listed above she does report she has been taken ibuprofen and acetaminophen without relief of her discomfort. She has not identified any associated symptoms. She denies fevers, chills, sweats, visual changes, hearing changes, facial nerve palsies, posterior neck pain and stiffness, cough, wheezing, shortness of breath, nausea, vomiting. Review of Systems: As noted above in history of present illness. 8 body systems were reviewed and found to be negative as noted above. Past Medical History: (1) Anxiety (2) Depression (3) Ovarian cyst (4) Pelvic prolapse (5) Restless leg syndrome Surgical Problems: (1) H/O: hysterectomy (2) Hx of cholecystectomy Current Medications: Medications Dose Route/Sig Max Daily Dose Days Date Category Endocet 7.5MG/325MG (Oxycodone/Acetaminophen 7.5MG/325MG) 1 Tab Tab 1-2 Tab PO Q4H PRN 01/19/17 Rx Docusate Sodium 100 Mg Cap 100 Mg PO BID PRN 01/19/17 Rx Effexor Xr (Venlafaxine Hcl) 150 Mg Cap 150 Mg PO QAM 02/19/16 Reported Allergies to Medications: Patient denies. Social History: Patient is currently employed and lives with her ; she feels safe in her home environment; patient admits to tobacco use and denies alcohol use. Physical Examination: Vital Signs: Date Time Temp Pulse Resp B/P (MAP) Pulse Ox O2 Delivery O2 Flow Rate FiO2 05/02/17 17:21 96 Room Air 05/02/17 17:19 37.1 98 20 110/75 96 Room Air GENERAL: 46-year-old female in moderate distress due to pain and symptoms, nontoxic-appearing, afebrile and hemodynamically stable. NEUROLOGICAL: Awake, alert and oriented to person, place and time. Answering questions appropriately and following commands. Normal gait. Good hand eye coordination. No focal motor or sensory deficits. Cranial nerves II through XII grossly intact. SKIN: Warm, dry and pink. Over the anterior aspect of the upper chest patient has herpetic-like lesions without signs of infection. HEENT: Atraumatic and normocephalic. No facial erythema or edema. She was able to distinguish light sensations to all dermatomes of the face. No tenderness or erythema over the frontal maxillary sinuses. External ears are nontender. Auditory canals are pink and patent. Tympanic membranes were not erythematous or edematous. The right tympanic membrane was slightly bulging. No erythema or tenderness over the mastoid processes. PERRLA. EOMI. Sclera white and conjunctiva pink. No drainage from naris. Oral cavity moist and pink. Airway is patent. Uvula is midline and no abscesses were noted. I did not appreciate any herpetic lesions within the mouth. There was a light grayish material covering the tonsils but they were not hypertrophied. Pharynx is nonerythematous or edematous. Speech normal. No lymphadenopathy. Trachea midline. No jugular venous distention. BACK: No tenderness over the bony spine. No meningismus or nuchal rigidity. Full range of motion of the cervical spine. THORAX: Lungs sounds are clear to auscultation and equal bilaterally with symmetrical chest wall. No wheezing, rales or rhonchi. ED Course: Patient is assessed as noted above. Patient's medication list was reviewed. Laboratory Testing: Test 05/02/17 18:49 Range/Units White Blood Count 9.55 4.8-10.8 K/uL Red Blood Count 4.97 4.2-5.4 M/uL Hemoglobin 16.6 12.0-16.0 g/dL Hematocrit 45.9 37-47 % Mean Corpuscular Volume 92.4 80-100 fL Mean Corpuscular Hemoglobin 33.4 25-34 pg Mean Corpuscular Hemoglobin Concent 36.2 32-36 g/dl RDW Standard Deviation 43.1 36.4-46.3 fL RDW Coefficient of Variation 12.8 11.5-14.5 % Platelet Count 243 130-400 K/uL Mean Platelet Volume 10.4 7.4-10.4 fL Sodium Level 135 136-145 mmol/L Potassium Level 4.2 3.5-5.1 mmol/L Chloride Level 104 98-107 mmol/L Carbon Dioxide Level 25 21-32 mmol/L Anion Gap 6.0 3-11 mmol/L Blood Urea Nitrogen 14 7-18 mg/dl Creatinine 0.70 0.60-1.20 mg/dl Estimated GFR () 122.1 Estimated GFR (Non- 105.4 BUN/Creatinine Ratio 20.4 10-20 Random Glucose 77 70-99 mg/dl Calcium Level 9.5 8.5-10.1 mg/dl Chemistry Specimen Hemolysis Soft Tissue Neck CT: Was not available to review by myself but read by the radiologist showing no acute abnormality, no inflammatory changes or abscesses, shotty cervical nodes, right mastoid effusion and fluid in the right middle ear. An IV lock was initiated and patient was hydrated with normal saline and received 30 mg of Toradol IV and 300 mg of gabapentin by mouth. Patient was reassessed multiple times during her stay in the emergency department. Patient's case was reviewed with Dr. Luong; she did apparently assessed the patient we agreed on diagnostic approach, treatment, disposition and plan. Clinical Impression: Acute pharyngitis. Disposition: Patient discharged home in stable condition accompanied by her ; prior to departure she was reassessed and subjectively reported she was feeling much better. Plan: Patient was encouraged to continue her antibiotics, antiviral and steroid medication. Patient was given a short course of [place] and instructed on their use; she was given appropriate narcotic precautions. Additionally patient was given a prescription for gabapentin 300 mg 3 times a day. Patient was encouraged to follow-up with PCP for recheck. Patient was encouraged return the ED for worsening/uncontrolled pain, inability to swallow, uncontrolled fevers, any abnormal neurological symptoms or any new/ concerning symptoms.
== END 2017-05-02 21:46 | disposition home or self-care (01) ==
LOC: C.EDB 17:03 → C.EDD 21:46
DX: J02.9 Acute pharyngitis, unspecified (principal); R51 Headache; M54.2 Cervicalgia; F41.9 Anxiety disorder, unspecified; F32.9 Major depressive disorder, single episode, unspecified; Z79.899 Other long term (current) drug therapy; F17.200 Nicotine dependence, unspecified, uncomplicated